=== PATIENT | female | born 1970 | race African-American/Black ===

== ENCOUNTER 2016-06-07 07:50 | Emergency (ER) | payer OTHER ==
[~2016-06-07] VITALS: Ht 180.3 cm; Wt 99.8 kg
[~2016-06-07 07:50] MED LIST: IBUP100O14 PO
[2016-06-07 08:15] VITALS: BP 126/81
== END 2016-06-07 08:16 | disposition home or self-care (01) ==
LOC: ER 07:52
DX: J02.0 Streptococcal pharyngitis (principal); Z88.1 Allergy status to other antibiotic agents
CPT/HCPCS: 99283; A4606; Z7610

== ENCOUNTER 2016-08-02 08:12 | Emergency (ER) | payer OTHER ==
[~2016-08-02] VITALS: Ht 170.2 cm; Wt 90.7 kg
--- NOTE | 2016-08-02 08:12 | NUR ---
PT COMPLAINS OF BURNING SENSATION AND FOUL ODOR URINE X 1 MONTH. PLACED ON MONITOR. VSS.
[2016-08-02] MEDS ORDERED: AZITHROMYCIN 250 MG TABLET PO ONE (08:30)
[2016-08-02] MEDS ORDERED: CEFTRIAXONE 500 MG VIAL IM ONE (08:30)
--- NOTE | 2016-08-02 08:30 | NUR ---
PELVIC DONE BY MD AT BEDSIDE
[2016-08-02] MEDS ORDERED: LIDOCAINE /MPF 1% VIAL 5 ML VIAL ONE (08:56)
[2016-08-02] MEDS ORDERED: AZITHROMYCIN 250 MG TABLET ONE (08:56)
[2016-08-02] MEDS ORDERED: CEFTRIAXONE 500 MG VIAL ONE (08:56)
--- NOTE | 2016-08-02 09:22 | NUR ---
Patient discharged to home in stable condition. Written and verbal after care instructions given. Patient verbalizes understanding of instruction.
[2016-08-02 09:23] VITALS: BP 129/89
== END 2016-08-02 09:24 | disposition home or self-care (01) ==
LOC: EDUNIT# 08:12 → ER 08:13
DX: N76.0 Acute vaginitis (principal); Z88.8 Allergy status to other drugs, medicaments and biological substances
CPT/HCPCS: 84703-TC; 87070-TC; 87110-TC; A4606; J0696; J3490; Z7610

== ENCOUNTER 2019-05-12 08:30 | Emergency (ER) | payer OTHER ==
[~2019-05-12] VITALS: Ht 177.8 cm; Wt 95.7 kg
[~2019-05-12 08:30] MED LIST changes: -IBUP100O14 PO; +IBUP100O19 PO
[2019-05-12 08:53] VITALS: BP 122/80
--- NOTE | 2019-05-12 10:05 | NUR ---
Patient discharged to home in stable condition. Written and verbal after care instructions given. Patient verbalizes understanding of instruction.
== END 2019-05-12 10:11 | disposition home or self-care (01) ==
LOC: ER 08:30
DX: H66.91 Otitis media, unspecified, right ear (principal); Z79.899 Other long term (current) drug therapy; Z88.8 Allergy status to other drugs, medicaments and biological substances

== ENCOUNTER 2025-01-19 09:55 | Emergency (ER) | payer OTHER ==
[~2025-01-19] VITALS: Ht 175.3 cm; Wt 83.9 kg
[~2025-01-19 09:55] MED LIST changes: +IBUP-2383 PO; -IBUP100O19 PO
[2025-01-19 10:32] VITALS: BP 128/78; TEMP 98.1; O2SAT 99
== END 2025-01-19 10:33 | disposition home or self-care (01) ==
LOC: ER 10:01
DX: T78.40XA Allergy, unspecified, initial encounter (principal); J45.909 Unspecified asthma, uncomplicated; X58.XXXA Exposure to other specified factors, initial encounter
CPT/HCPCS: 99283; J8540